=== PATIENT | female | born 1995 | race Native Hawaiian/Other Pacific Islander ===

== ENCOUNTER 2021-04-23 11:06 | Emergency (ER) | payer BC ==
[~2021-04-23] VITALS: Ht 157.5 cm; Wt 64.9 kg
[2021-04-23 11:09] VITALS: BP 157/87
--- NOTE | 2021-04-23 11:32 | NUR ---
25 y/o female BIB self from home c/o fatigue, dizzy, lightheaded, SOB, heavy vaginal bleeding one and off for 3 months, worsened 4 days ago. Patient A&Ox4, ambulatory, reports PCP changing her control due to irregular menstrual periods; states bleeding noted with heavy clots recently. Reports recent change to natazia 5 days ago. Patient states intermittent low abdominal cramping, however, states 0 pain at this time. Denies nausea, vomiting, diarrhea, constipation, chest pain. Pt states recent blood work showing Hgb 7.6. No meds prior to arrival. Bed locked in lowest position, side rails x 1. night monitor in place. PMH: uterine fibroids, ovarian cyst NKDA Meds: natazia Sx: appendectomy
--- NOTE | 2021-04-23 11:32 | NUR ---
Dr. Vasquez is evaluating pt at bedside
[2021-04-23 12:18] LABS: BASOPHILS # (AUTO) 0.1 K/uL (0.00-0.22); BASOPHILS % (AUTO) 1.2 % (0.0-2.0); EOSINOPHILS % (AUTO) 0.5 % (0.0-4.0); HEMATOCRIT 23.9 % (36-48); HEMOGLOBIN 7.3 g/dL (12.0-16.0); MEAN CORPUSCULAR HEMOGLOBIN 20 pg (27-31); MEAN CORPUSCULAR HGB CONC 30 g/dL (33-37); MEAN CORPUSCULAR VOLUME 65.8 fL (80-94); MONOCYTES # (AUTO) 0.3 K/uL (0.8-1.0); MONOCYTES % (AUTO) 5.7 % (1.7-9.3); NEUTROPHILS # (AUTO) 3.4 K/uL (1.8-7.7); NEUTROPHILS % (AUTO) 71.6 % (42.2-75.2); PLATELET COUNT (AUTO) 365 K/uL (140-450); RED BLOOD CELL COUNT(AUTO) 3.63 MIL/uL (4.20-5.40); WHITE BLOOD COUNT (AUTO) 4.8 K/uL (4.8-10.8)
[2021-04-23 13:00] LABS: ANION GAP 16.1 (8-16); CARBON DIOXIDE 22.3 mmol/L (21-32); CREATININE 0.7 mg/dL (0.6-1.3); POTASSIUM 3.4 mmol/L (3.5-5.1)
--- NOTE | 2021-04-23 13:30 | NUR ---
Dr. Vasquez is reevaluating patient at bedside
[2021-04-23] MEDS ORDERED: IRON45TA10 PO (13:32)
--- NOTE | 2021-04-23 13:56 | NUR ---
[place] provided per pt request.
--- NOTE | 2021-04-23 14:59 | NUR ---
Patient resting in semi-fowlers position. assistant signal maintainer in place. Bed locked in lowest position, side rails x 1.
--- NOTE | 2021-04-23 16:45 | NUR ---
Consent signed per patient agreeing to administration of blood. Blood has been type and crossmatched. Blood sent from blood bank. Information on unit of blood checked against patient wristband at bedside by two nurses. All information matches. Patient or responsible alliance party informed of potential complications associated with blood transfusion. Informed of possible transfusion reaction symptoms. Aware of need to notify nurse at once of itching, shortness of breath, flushing, feeling of impending doom, or other symptoms not previously present. Vital signs taken within 5 minutes prior to initiation of transfusion. RN will remain with patient for first 15 minutes of transfusion at which time vital signs will be re-assessed.
--- NOTE | 2021-04-23 16:59 | NUR ---
Patient resting in position of comfort. Denies pain at this time. All pt needs met. Blood transfusion continued. Pt remains on media monitor showing VSS. Respirations even/unlabored. Bed locked in lowest position, side rails x 1, call light in reach.
--- NOTE | 2021-04-23 17:15 | NUR ---
Pt states slight headache 4/10 at this time. States tolerable no request for Tylenol at this time. Blood transfusion continued. media monitor in place. VSS; respirations even/unlabored.
[2021-04-23 18:40] VITALS: BP 107/60
--- NOTE | 2021-04-23 19:00 | NUR ---
Blood tranfusion completed. Discarded in red biohazard.
--- NOTE | 2021-04-23 19:00 | NUR ---
Blood transfusion completed.
--- NOTE | 2021-04-23 19:05 | NUR ---
IV removed, catheter intact and site benign. Applied folded 2x2 gauze and tape to stop bleeding.
--- NOTE | 2021-04-23 19:10 | NUR ---
Patient discharged with v/s stable. Written and verbal after care instructions given and explained for Anemia, Uterine Fibroids. Patient alert, oriented and verbalized understanding of instructions. Ambulatory with steady gait. All questions addressed prior to discharge. ID band removed. Patient advised to follow up with PMD. Rx of Iron, Carbonyl given. Patient educated on indication of medication including possible reaction and side effects. Opportunity to ask questions provided and answered.
== END 2021-04-23 19:10 | disposition home or self-care (01) ==
LOC: MED 11:06
DX: D25.9 Leiomyoma of uterus, unspecified (principal); D64.9 Anemia, unspecified; Z90.49 Acquired absence of other specified parts of digestive tract; Z79.899 Other long term (current) drug therapy
CPT/HCPCS: 36415; 76856; 80048; 81002; 81025; 85025; 86886; 86900; 86901; 86920; 93976; 99285; P9016; Q0092; 93005

== ENCOUNTER 2021-05-18 19:23 | Emergency (ER) | payer BC ==
[~2021-05-18] VITALS: Ht 157.5 cm; Wt 64.4 kg
[~2021-05-18 19:23] MED LIST: IRON45TA10 PO
[2021-05-18 19:43] VITALS: BP 105/70
--- NOTE | 2021-05-18 19:53 | NUR ---
AMBULATED TO BED 2 FROM TRIAGE
--- NOTE | 2021-05-18 20:00 | NUR ---
LAB AT BEDSIDE.
--- NOTE | 2021-05-18 20:04 | NUR ---
25 YO F BIB SELF WITH C/C OF VAGINAL BLEEDING XFRIDAY. STATES SHE IS PASSING CLOTS AND SATURATING PADS 2/HR WHEN BLEEDING GETS HEAVY. REPORTS LOWER ABD CRAMPING /10. +DIZZINESS. PT STATES SHE FELT SHE WAS GOING TO PASS OUT. PT STATES SHE HAS A HISTORY OF FIBROIDS AND IS UNDER THE CARE OF A MD TO MONITOR GROWTH OF FIBROID. PT STATES SHE HAS NEEDED A BLOOD TRANSFUSION IN PAST FOR SAME REASON. DENIES . HX:ANEMIA NKA
--- NOTE | 2021-05-18 20:04 | NUR ---
Susie eugene in ED - 05/18/21 at 2010 by [facility] AT BEDSIDE.
[2021-05-18 20:12] LABS: BASOPHILS # (AUTO) 0.1 K/uL (0.00-0.22); BASOPHILS % (AUTO) 0.9 % (0.0-2.0); EOSINOPHILS % (AUTO) 0.3 % (0.0-4.0); HEMATOCRIT 23.8 % (36-48); HEMOGLOBIN 7.5 g/dL (12.0-16.0); LYMPHOCYTES # (AUTO) 1.2 K/uL (2.5-16.5); LYMPHOCYTES % (AUTO) 22.4 % (20.5-51.1); MEAN CORPUSCULAR HEMOGLOBIN 24 pg (27-31); MEAN CORPUSCULAR HGB CONC 31 g/dL (33-37); MEAN CORPUSCULAR VOLUME 75.5 fL (80-94); MONOCYTES # (AUTO) 0.3 K/uL (0.8-1.0); MONOCYTES % (AUTO) 5.6 % (1.7-9.3); NEUTROPHILS # (AUTO) 3.8 K/uL (1.8-7.7); NEUTROPHILS % (AUTO) 70.8 % (42.2-75.2); PLATELET COUNT (AUTO) 332 K/uL (140-450); RED BLOOD CELL COUNT(AUTO) 3.15 MIL/uL (4.20-5.40); RED CELL DISTRIBUTION WIDTH 25.7 % (11.6-13.7); WHITE BLOOD COUNT (AUTO) 5.4 K/uL (4.8-10.8)
[2021-05-18 20:35] LABS: ALBUMIN 3.4 g/dL (3.4-5.0); ANION GAP 10.3 (8-16); CARBON DIOXIDE 23.9 mmol/L (21-32); CREATININE 0.8 mg/dL (0.6-1.3); POTASSIUM 3.2 mmol/L (3.5-5.1); TOTAL BILIRUBIN 0.2 mg/dL (0.0-1.0)
--- NOTE | 2021-05-18 21:25 | NUR ---
Female Academic Affairs Specialist accompanied female patient for Pelvic Exam.
--- NOTE | 2021-05-18 23:24 | NUR ---
PT IS RECEIVING BLOOD. PT DENIES CHANGES FROM BASELINE. AT BEDSIDE. ALL NEEDS MET AT THIS TIME. BED LOCKED IN LOWEST POSITION, SIDE RAILS X2 FOR SAFETY.
--- NOTE | 2021-05-19 00:28 | NUR ---
BLOOD TRANSFUSION COMPLETED. PT STATES "I FEEL GREAT".
--- NOTE | 2021-05-19 00:30 | NUR ---
SANTANA MCGHEE STATED PT CAN LEAVE 15 MINS POSTTRANSFUSION.
[2021-05-19 00:52] VITALS: BP 109/72
--- NOTE | 2021-05-19 00:52 | NUR ---
Patient discharged with v/s stable. Written and verbal after care instructions given and explained. Patient verbalized understanding. Ambulatory with steady gait. All questions addressed prior to discharge. Advised to follow up with PMD.
== END 2021-05-19 00:52 | disposition home or self-care (01) ==
LOC: MED 19:23
DX: R42 Dizziness and giddiness (principal); D64.9 Anemia, unspecified; N93.8 Other specified abnormal uterine and vaginal bleeding; D25.9 Leiomyoma of uterus, unspecified; Z79.899 Other long term (current) drug therapy
CPT/HCPCS: 36415; 80053; 84702; 85025; 86886; 86900; 86901; 86920; 99291; P9016; 99285

== ENCOUNTER 2021-05-30 10:22 | Emergency (ER) | payer BC ==
[~2021-05-30] VITALS: Ht 157.5 cm; Wt 60.8 kg
[2021-05-30 10:28] VITALS: BP 132/75
[2021-05-30 11:08] LABS: BASOPHILS # (AUTO) 0.1 K/uL (0.00-0.22); BASOPHILS % (AUTO) 1.1 % (0.0-2.0); EOSINOPHILS # (AUTO) 0.1 K/uL (0-0.4); EOSINOPHILS % (AUTO) 1.2 % (0.0-4.0); HEMATOCRIT 34.5 % (36-48); HEMOGLOBIN 11.1 g/dL (12.0-16.0); LYMPHOCYTES # (AUTO) 1.1 K/uL (2.5-16.5); LYMPHOCYTES % (AUTO) 22.6 % (20.5-51.1); MEAN CORPUSCULAR HEMOGLOBIN 27 pg (27-31); MEAN CORPUSCULAR HGB CONC 32 g/dL (33-37); MEAN CORPUSCULAR VOLUME 83.4 fL (80-94); MONOCYTES # (AUTO) 0.3 K/uL (0.8-1.0); MONOCYTES % (AUTO) 7.1 % (1.7-9.3); NEUTROPHILS # (AUTO) 3.2 K/uL (1.8-7.7); PLATELET COUNT (AUTO) 337 K/uL (140-450); RED BLOOD CELL COUNT(AUTO) 4.14 MIL/uL (4.20-5.40); RED CELL DISTRIBUTION WIDTH 24.2 % (11.6-13.7); WHITE BLOOD COUNT (AUTO) 4.7 K/uL (4.8-10.8)
[2021-05-30] MEDS: NACL 0.9% 1,000 ML IV ONE (11:08)
[2021-05-30 11:14] LABS: ANION GAP 12.4 (8-16); CARBON DIOXIDE 24.2 mmol/L (21-32); CREATININE 0.8 mg/dL (0.6-1.3); POTASSIUM 3.6 mmol/L (3.5-5.1)
[2021-05-30] MEDS: IRON SUCROSE COMPLEX 100 MG/5 ML VIAL IVP ONE (11:25)
[2021-05-30 12:43] VITALS: BP 132/75
== END 2021-05-30 12:43 | disposition home or self-care (01) ==
LOC: MED 10:22
DX: D25.9 Leiomyoma of uterus, unspecified (principal); Z20.822 Contact with and (suspected) exposure to COVID-19; D64.9 Anemia, unspecified; Z79.899 Other long term (current) drug therapy
CPT/HCPCS: 36415; 71045; 80048; 81002; 81025; 85025; 86886; 86900; 86901; 87426; 93005; 96361; 96374; 99285; J1756; J7030; Q0092